=== PATIENT | male | born 1985 | race Caucasian/White ===

== ENCOUNTER 2019-11-15 19:09 | Emergency (ER) | payer OTHER, MEDICARE ==
--- NOTE | 2019-11-15 19:34 | ER Document Report ---
HPI - HPI Patient complains to provider of: Productive cough Time Seen by Provider: 11/15/19 19:29 Onset: Other - Few days Pain Level: Denies Context: 33-year-old male presents emergency department with complaints of productive cough for the past few days. Denies fever vomiting diarrhea. Denies shortness of breath. Denies history of asthma COPD. Associated Symptoms: Productive cough Exacerbated by: Denies Relieved by: Denies Similar symptoms previously: No Recently seen / treated by doctor: No Past Medical History - General Information source: Patient - Social History Smoking Status: Never Smoker Frequency of alcohol use: None Drug Abuse: None Family History: None Patient has suicidal ideation: No Patient has homicidal ideation: No - Medical History Medical History: Negative Past Surgical History: Reports: Hx Orthopedic Surgery - Immunizations Hx Diphtheria, Pertussis, Tetanus Vaccination: Yes Vertical Provider Document - CONSTITUTIONAL Agree With Documented VS: Yes Exam Limitations: No Limitations General Appearance: WD/WN, No Apparent Distress - INFECTION CONTROL TRAVEL OUTSIDE OF THE [place] IN LAST 30 DAYS: No - HEENT HEENT: Atraumatic, Normal ENT Exam, Normocephalic. negative: Conjuctival Injection, Pharyngeal Erythema, Tympanic Membrane Red - NECK Neck: Normal Inspection, Supple. negative: Lymphadenopathy-Left, Lymphadenopathy-Right - RESPIRATORY Respiratory: Breath Sounds Normal, No Respiratory Distress - CARDIOVASCULAR Cardiovascular: Regular Rate, Regular Rhythm - MUSCULOSKELETAL/EXTREMETIES Musculoskeletal/Extremeties: MAEW, FROM - NEURO Level of Consciousness: Awake, Alert, Appropriate Motor/Sensory: No Motor Deficit - DERM Integumentary: Warm, Dry Course - Re-evaluation Re-evalutation: Chest X-Ray 11/15/19 19:32 IMPRESSION: NO ACUTE RADIOGRAPHIC FINDING IN THE CHEST. 11/15/19 20:13 Chest x-ray negative. Patient was instructed on this. Patient became slightly upset reports he does have insurance he wants medication for his cough. We reviewed his cough for the past 2 days. No fever no vomiting. No pneumonia. He was instructed on [id number] cough medicine as indicated. Patient verbalized understanding. - Vital Signs Vital signs: Temp Pulse Resp BP Pulse Ox 98 F 96 20 96 11/15/19 19:23 11/15/19 19:23 11/15/19 19:23 11/15/19 19:23 - Diagnostic Test Radiology reviewed: Image reviewed, Reports reviewed Discharge - Discharge Clinical Impression: Cough Condition: Stable Disposition: HOME, SELF-CARE Additional Instructions: *You have been evaluated for a cough *Your chest x-ray was negative for pneumonia *Take [id number] cough medicine as indicated *Increase fluids *Monitor your temperature, take Tylenol as indicated *Follow up with a primary care provider within one week for recheck *Return to ED for increasing fever, cough, worsening condition, changes, needs Referrals: MELLISA SLAUGHTER MD [Primary Care Provider] - Follow up in 1 week
--- NOTE | 2019-11-15 19:56 | RADIOLOGY REPORT (SQ) ---
EXAM DESCRIPTION: CHEST 2 VIEWS COMPLETED DATE/TIME: 11/15/2019 7:45 pm REASON FOR STUDY: cough COMPARISON: None. EXAM PARAMETERS: NUMBER OF VIEWS: two views TECHNIQUE: Digital Frontal and Lateral radiographic views of the chest acquired. RADIATION DOSE: NA LIMITATIONS: none FINDINGS: LUNGS AND PLEURA: No opacities, masses or pneumothorax. No pleural effusion. MEDIASTINUM AND HILAR STRUCTURES: No masses or contour abnormalities. HEART AND VASCULAR STRUCTURES: Heart normal size. No evidence for failure. BONES: No acute findings. HARDWARE: None in the chest. OTHER: No other significant finding. IMPRESSION: NO ACUTE RADIOGRAPHIC FINDING IN THE CHEST. TECHNICAL DOCUMENTATION: JOB ID: [id number] [employer]- All Rights Reserved Reading location - IP/workstation name: [email or web address]
[2019-11-15 20:09] VITALS: BP 128/88
== END 2019-11-15 20:15 | disposition home or self-care (01) ==
LOC: ER 19:09
DX: R05 Cough (principal)
CPT/HCPCS: 71046; 99283